=== PATIENT | female | born 1945 | race Caucasian/White ===

== ENCOUNTER → 2018-07-30 | Outpatient (CLI) | payer MEDICARE ==
[~2018-07-30] MED LIST: CALC200T3 PO; HYDR-3240 PO; LEVO125T PO; NONE PER PT
== END | disposition home or self-care (01) ==
LOC: CFH 10:03
PROVIDERS: ATTEND Internal Medicine Endocrinology, Diabetes & Metabolism
DX: C73 Malignant neoplasm of thyroid gland (principal)
CPT/HCPCS: 76536